=== PATIENT | female | born 1955 | race Caucasian/White ===

== ENCOUNTER 2017-07-04 10:19 | Outpatient (CLI) | payer BC | END 2017-07-04 23:59 | disposition home or self-care (01) | LOC: LAB 10:19 | PROVIDERS: ATTEND Naturopath | DX: Z13.0 Encounter for screening for diseases of the blood and blood-forming organs and certain disorders involving the immune mechanism (principal); Z13.6 Encounter for screening for cardiovascular disorders; Z13.1 Encounter for screening for diabetes mellitus; N95.1 Menopausal and female climacteric states; E63.9 Nutritional deficiency, unspecified | CPT/HCPCS: 36415 ==